=== PATIENT | female | born 1985 | race American Indian/Alaskan Native ===

== ENCOUNTER 2020-01-08 17:49 | Emergency (ER) | payer OTHER ==
[2020-01-08 18:28] VITALS: BP 142/85
--- NOTE | 2020-01-08 22:14 | Emergency Department Report ---
ED Recheck HPI - General Chief Complaint: Medical Clearance Stated Complaint: WOUND OPEN Time Seen by Provider: 01/08/20 21:15 Source: patient Mode of arrival: Ambulatory Limitations: No Limitations - History of Present Illness Initial Comments: This is a 34-year-old female nontoxic, well nourished in appearance, no acute signs of distress presents to the ED with c/o of slight abrasion to incision site. Patient stated that she had a tummy tuck done by Dr. Guerra in [place] on 12/20/2019. Patient stated she had appropriate follow-up and was instructed that everything was okay and that she could go back to [place]. Patient stated that she did call her surgeon which was instructed not to be concerned but patient stated she was concerned and came to emergency room. Patient denies any pus or drainage. Denies any redness. Denies any swelling. Denies any tenderness. Patient denies any other symptoms or complaints. Patient denies any fever, chills, nausea, vomiting, headache or stiff neck. Patient denies any allergies. -: days(s) Returns Today for: wound recheck Symptoms Since Prior Visit: no new symptoms Associated Symptoms: none - Related Data Allergies Allergy/AdvReac Type Severity Reaction Status Date / Time No Known Allergies Allergy Unverified 01/08/20 18:28 ED Review of Systems ROS: Stated complaint: WOUND OPEN Other details as noted in HPI Constitutional: denies: chills, fever Eyes: denies: eye pain, eye discharge, vision change ENT: denies: ear pain, throat pain Respiratory: denies: cough, shortness of breath, wheezing Cardiovascular: denies: chest pain, palpitations Endocrine: no symptoms reported Gastrointestinal: denies: abdominal pain, nausea, diarrhea Genitourinary: denies: urgency, dysuria, discharge Musculoskeletal: denies: back pain, joint swelling, arthralgia Skin: denies: rash, lesions Neurological: denies: headache, weakness, paresthesias Psychiatric: denies: anxiety, depression Hematological/Lymphatic: denies: easy bleeding, easy bruising ED Past Medical Hx - Past Medical History Previous Medical History?: Yes - Surgical History Past Surgical History?: Yes ED Physical Exam - General Limitations: No Limitations General appearance: alert, in no apparent distress - Extremities Exam Extremities exam: Present: normal inspection, full ROM - Back Exam Back exam: Present: normal inspection, full ROM - Neurological Exam Neurological exam: Present: alert, oriented X3, normal gait - Psychiatric Psychiatric exam: Present: normal affect, normal mood - Skin Skin exam: Present: warm, dry, intact, normal color, other (No cellulitis, swelling or abscess noted. There is a small mild abrasion in the incision site measures about 1 cm. The surgical site is well-healing and is closed.). Absent: rash - Expanded Skin Exam Expanded 1 - small abrasion ED Course Vital Signs 01/08/20 18:27 Temperature 98.5 F Pulse Rate 103 H Respiratory 20 Rate Blood Pressure 142/85 [Right] O2 Sat by Pulse 100 Oximetry - Reevaluation(s) Reevaluation #1: 01/08/20 22:12 Patient is speaking in full sentences with no signs of distress noted. ED Recheck MDM - Medical Decision Making Patient is stable and was examined by me. Vital signs are stable. The area does not seem to have any cellulitis or abscess formation. A Steri-Strip has been applied to the small little abrasion. Patient was given strict precautions to call her surgeon and to send pictures if the surgeon requests for appr opriate treatment. Patient was also instructed to follow-up with a primary care doctor in 3-5 days or if symptoms worsen and continue return to emergency room as soon as possible. At time of discharge, the patient does not seem toxic or ill in appearance. No acute signs of distress noted. Patient agrees to discharge treatment plan of care. No further questions noted by the patient. Critical care attestation.: If time is entered above; I have spent that time in minutes in the direct care of this critically ill patient, excluding procedure time. ED Disposition Clinical Impression: Visit for wound check Disposition: - TO HOME OR SELFCARE Is pt being admited?: No Does the pt Need Aspirin: No Condition: Stable Additional Instructions: Follow-up with a primary care doctor in 3-5 days or if symptoms worsen and continue return to emergency room as soon as possible. As instructed to you during your visit today, call your surgeon tomorrow for appropriate follow-up and treatment. Referrals: FIDEL SANTOS MD [Primary Care Provider] - 3-5 Days ARGELIA CHA MD [Staff Physician] - 3-5 Days [facility] [Provider Group] - 3-5 Days Forms: Work/School Release Form(ED)
== END 2020-01-08 22:20 | disposition home or self-care (01) ==
LOC: ED 17:49
DX: Z48.00 Encounter for change or removal of nonsurgical wound dressing (principal)
CPT/HCPCS: 99282